=== PATIENT | male | born 1950 | race Caucasian/White ===

== ENCOUNTER 2016-06-02 18:34 | Emergency (ER) | payer BC ==
[2016-06-02] MEDS ORDERED: Sulfamethox/Trimethoprim DS 800/160* TAB PO ONE (20:09)
--- NOTE | 2016-06-02 20:09 | UC ---
Respiratory Complaint HPI - History of Current Complaint Chief Complaint: UCRespiratory Stated Complaint: COUGH/CONGESTION Time Seen by Provider: 06/02/16 19:59 Hx Obtained From: Patient Onset/Duration: Sudden Onset - 4 days ago, Worse Since - onset Timing: Constant Severity Initially: Mild Severity Currently: Moderate Character: Cough: Productive Associated Signs And Symptoms: Positive: Fever, Wheezing, URI, Nasal Congestion , Sinus Discomfort Related History: Seasonal Allergies - Risk Factors Pulmonary Embolism Risk Factors: Negative Cardiac Risk Factors: Smoking Pseudomonas Risk Factors: Negative Tuberculosis Risk Factors: Negative - Allergies/Home Medications Allergies/Adverse Reactions: Allergies Allergy/AdvReac Type Severity Reaction Status Date / Time No Known Allergies Allergy Verified 06/02/16 19:51 Home Medications: Home Medications Tamsulosin CAP* [Flomax CAP*] 0.4 mg PO DAILY 06/02/16 [History Confirmed ] PMH/Surg Hx/FS Hx/Imm Hx Endocrine History Of: Denies: Diabetes, Thyroid Disease Cardiovascular History Of: Denies: Cardiac Disorders, Hypertension Respiratory History Of: Denies: COPD, Asthma GI/ History Of: Denies: Ulcer - Surgical History Surgical History: Yes Surgery Procedure, Year, and Place: [facility] - Family History Known Family History: Positive: Cardiac Disease, Hypertension, Diabetes - Social History Occupation: Retired Lives: With Family Alcohol Use: None Substance Use Type: None Smoking Status (MU): Heavy Every Day Tobacco Smoker Amount Used/How Often: 1 ppd Length of Time of Smoking/Using Tobacco: started age 12 Review of Systems Constitutional: Fever, Chills ENT: Sore Throat, Nasal Discharge Respiratory: Shortness Of Breath, Cough Cardiovascular: Chest Pain - with coughing. Neurological: Headache - frontal sinus headache All Other Systems Reviewed And Are Negative: Yes Physical Exam Triage Information Reviewed: Yes Appearance: No Pain Distress, Well-Nourished, Ill-Appearing Vital Signs: Initial Vital Signs Temp 100.4 F 06/02/16 19:44 Pulse 68 06/02/16 19:44 Resp 14 06/02/16 19:44 BP 172/104 06/02/16 19:44 Pulse Ox 98 06/02/16 19:44 Vital Signs Reviewed: Yes Eyes: Positive: Conjunctiva Inflamed - ou mild ENT: Positive: Nasal congestion, TMs normal Neck exam: Normal Respiratory: Positive: Wheezing - diffuse moderate expiratory wheezes. Cardiovascular Exam: Normal Musculoskeletal Exam: Normal Neurological Exam: Normal Psychological Exam: Normal Skin Exam: Normal UC Diagnostic Evaluation - Laboratory O2 Sat by Pulse Oximetry: 98 Respiratory Course/Dx - Differential Dx/Diagnosis Differential Diagnosis/HQI/PQRI: Asthma, Lower Resp Infection, Sinusitis Provider Diagnoses: Acute URI. Acute sinusitis. Acute bronchospasm Discharge - Discharge Plan Condition: Stable Disposition: HOME Prescriptions: Sulfamethox/Trimethoprim DS* [Bactrim DS 800/160 TAB*] 1 tab PO BID #20 tab predniSONE TAB* [Deltasone TAB*] 20 mg PO DAILY #18 tab Patient Education Materials: Upper Respiratory Infection (ED), Sinusitis (ED), Sulfamethoxazole/Trimethoprim (By mouth), Bronchospasm (ED), Prednisone (By mouth), How to Use a Metered-Dose Inhaler and a Spacer (ED) Referrals: Clarissa Gómez MD [Primary Care Provider] - 5 Days (on your blood pressure) Additional Instructions: Smoking Cessation Tricks. 1. Cut down by 1 cigarette per day every 2-3 days. Write the number of smokes for that day on the calendar. 2. Identify triggers to smoking: after meals, on the phone, in the car, with coffee, on breaks at work, etc. 3. Formulate a plan with a behavior to replace the smoking. Fireballs in the car , doodle pad on the phone, flavored creamer for the coffee, go for a walk after a meal or on break at work. 4. For stress smokes do deep breathing relaxation. Breath deep in through the nose hold the breath in for a few seconds then breath out slowly through the mouth. Local [employer] SINUS RINSE: CHECK OUT AT [facility] Saline nasal wash helps with mucous, allergies and congestion. It can be used up to twice a day or only as needed. Use lukewarm tap water. It does not have to be sterilized or distilled water. Do 1/3 on each side and snort out of both nostrils. Repeat the process with 1/6 of the bottle on each side with snorting in between to finish the solution in the bottle NASAL SPRAYS AND DROPS: Afrin in the PUMP/ MIST bottle. Tilt your head down and look at the floor while doing a strong sniff with the spray. Decongestant nasal sprays and drops often give dramatic relief from congestion. They are often recommended for patients with sinus infection to assist with sinus drainage. Persons with high blood pressure should consult the doctor before using these nasal sprays. Afrin and Gulshan-Synephrine are common [id number] preparations. They should not be used for more than five days, as "rebound" congestion can occur - - the congestion flares as the drug wears off. A way of dealing with this rebound congestion problem is to medicate only one nostril each time, allowing the other nostril to recover from the medicine' s effects. When you no longer need the drug during the day, spray only one nostril each night. This helps you sleep well without severe rebound congestion. Call the doctor if you develop severe headache, palpitations, or chest pain.
[2016-06-02] MEDS ORDERED: Albuterol HFA INHALER* 8 gm MDI INH ONE (20:10)
== END 2016-06-02 20:31 | disposition home or self-care (01) ==
LOC: UCCORT 18:34
DX: J06.9 Acute upper respiratory infection, unspecified (principal); J98.01 Acute bronchospasm; F17.210 Nicotine dependence, cigarettes, uncomplicated
CPT/HCPCS: 99203; A9270-GY; G0463

== ENCOUNTER 2016-12-14 09:48 | Emergency (ER) | payer MEDICARE, BC ==
[2016-12-14 10:25] VITALS: BP 150/100
--- NOTE | 2016-12-14 10:52 | RAD ---
HISTORY: Right middle finger trauma COMPARISONS: None VIEWS: 3, Frontal, lateral, and oblique views of the third digit of the right hand FINDINGS: BONE DENSITY: Normal. BONES: There is no displaced fracture. JOINTS: There is mild osteoarthritis of interphalangeal joints. There is osteoarthritis of the MCP joints. ALIGNMENT: There is no dislocation. SOFT TISSUES: There is soft tissue irregularity consistent with history of laceration. OTHER FINDINGS: None. IMPRESSION: OSTEOARTHRITIS. NO ACUTE OSSEOUS INJURY. IF SYMPTOMS PERSIST, RECOMMEND REPEAT IMAGING.
[2016-12-14] MEDS ORDERED: Lidocaine 2% PF * 5 ML VIAL INJ ONE (10:58)
--- NOTE | 2016-12-14 11:39 | UC ---
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 CUT RIGHT SECOND FINGER WITH EMERSION SOURCING ANALYST - History Of Current Complaint Chief Complaint: UCLaceration Stated Complaint: RIGHT MIDDLE FINGER LAC Time Seen by Provider: 12/14/16 10:01 Hx Obtained From: Patient Laceration Location: Finger Mechanism Of Injury: Sharp Trauma Onset/Duration: Sudden Onset, Lasting Hours Related History: Dominant Hand Right - Allergies/Home Medications Allergies/Adverse Reactions: Allergies Allergy/AdvReac Type Severity Reaction Status Date / Time No Known Allergies Allergy Verified 12/14/16 10:18 PMH/Surg Hx/FS Hx/Imm Hx Previously Healthy: Yes - Surgical History Surgical History: Yes Surgery Procedure, Year, and Place: [facility] - Family History Known Family History: Positive: Cardiac Disease, Hypertension, Diabetes - Social History Occupation: Retired Lives: With Family Alcohol Use: None Substance Use Type: None Smoking Status (MU): Heavy Every Day Tobacco Smoker Amount Used/How Often: 1 ppd Length of Time of Smoking/Using Tobacco: started age 12 Cessation Counseling: Patient Advised to Stop - Immunization History Most Recent Tetanus Shot: WITHIN 5 YEARS Review of Systems Constitutional: Negative Skin: Other - laceration Right third finger Eyes: Negative ENT: Negative Respiratory: Negative Cardiovascular: Negative Gastrointestinal: Negative Genitourinary: Negative Motor: Negative Neurovascular: Negative Musculoskeletal: Negative Neurological: Negative Psychological: Negative Is Patient Immunocompromised?: No All Other Systems Reviewed And Are Negative: Yes Physical Exam Triage Information Reviewed: Yes Appearance: Well-Appearing, No Pain Distress, Well-Nourished Vital Signs: Initial Vital Signs Temp 98.1 F 12/14/16 10:18 Pulse 66 12/14/16 10:18 Resp 18 12/14/16 10:18 BP 150/100 12/14/16 10:18 Pulse Ox 97 12/14/16 10:18 Vital Signs Reviewed: Yes Eye Exam: Normal ENT Exam: Normal ENT: Positive: Normal ENT inspection, TMs normal Dental Exam: Normal Neck exam: Normal Neck: Positive: Supple, Nontender, No Lymphadenopathy Respiratory Exam: Normal Respiratory: Positive: Chest non-tender, Lungs clear, Normal breath sounds, No respiratory distress, No accessory muscle use Cardiovascular Exam: Normal Cardiovascular: Positive: RRR, No Murmur, Pulses Normal, Brisk Capillary Refill Abdominal Exam: Normal Musculoskeletal Exam: Normal Musculoskeletal: Positive: Strength Intact, ROM Intact Neurological Exam: Normal Psychological Exam: Normal Skin: Positive: Other - laceration right third finger Laceration Repair - Laceration Repair 1 Description: Linear Laceration Size After Repair: Length (cm) - 1.3, Width (mm) - 2, Depth (mm) - 4 Type Injection: Digital Anesthesia Used: 2.0% Lido Cleansing Completed Via Routine Prep: Yes Irrigation With Pressure Irrigation Device: Yes Closure Material: Sutures Closure Method: Single Layer Suture Of: Skin - 5 x 4-0 Suture Type: Prolene Laceration Course/Dx - Differential Dx - Laceration/Wound Differental Diagnoses: Laceration, Tendon Laceration Provider Diagnoses: LACERATION RIGHT THIRD FINGER WITH REPAIR Discharge - Discharge Plan Condition: Stable Disposition: HOME Patient Education Materials: Finger Laceration (ED) Referrals: Clarissa Gómez MD [Primary Care Provider] - Additional Instructions: HAVE SUTURES REMOVED IN TEN DAYS
== END 2016-12-14 11:42 | disposition home or self-care (01) ==
LOC: UCCORT 09:48
DX: S61.212A Laceration without foreign body of right middle finger without damage to nail, initial encounter (principal); W29.8XXA Contact with other powered hand tools and household machinery, initial encounter; Y93.G1 Activity, food preparation and clean up; Y92.9 Unspecified place or not applicable; F17.210 Nicotine dependence, cigarettes, uncomplicated
CPT/HCPCS: 12001; 73140; 99211; G0463

== ENCOUNTER 2016-12-23 07:52 | Emergency (ER) | payer MEDICARE, BC ==
--- NOTE | 2016-12-23 08:17 | UC ---
Ear Complaint HPI - HPI Summary HPI Summary: patient here to get sutures removed from a previous injury, and also complaining of pain and fluid in the left ear. - History of Current Complaint Chief Complaint: UCSkin Stated Complaint: SUTURE REMOVAL/LEFT EAR COMPLAINT Time Seen by Provider: 12/23/16 08:03 Hx Obtained From: Patient Onset/Duration: Sudden Onset, Lasting Days Severity Initially: Mild Severity Currently: Mild Associated Signs/Symptoms: Positive: URI Symptoms - Allergies/Home Medications Allergies/Adverse Reactions: Allergies Allergy/AdvReac Type Severity Reaction Status Date / Time No Known Allergies Allergy Verified 12/23/16 08:02 PMH/Surg Hx/FS Hx/Imm Hx Previously Healthy: Yes - Surgical History Surgical History: Yes Surgery Procedure, Year, and Place: [facility] - Family History Known Family History: Positive: Cardiac Disease, Hypertension, Diabetes - Social History Alcohol Use: None Substance Use Type: None Smoking Status (MU): Heavy Every Day Tobacco Smoker Amount Used/How Often: 1 ppd Length of Time of Smoking/Using Tobacco: started age 12 Household Exposure Type: Cigarettes - Immunization History Most Recent Tetanus Shot: WITHIN 5 YEARS Review of Systems Constitutional: Negative Skin: Other - resolved lac Eyes: Negative ENT: Ear Ache Respiratory: Negative Cardiovascular: Negative Gastrointestinal: Negative Genitourinary: Negative Motor: Negative Neurovascular: Negative Musculoskeletal: Negative Neurological: Negative Psychological: Negative Is Patient Immunocompromised?: No All Other Systems Reviewed And Are Negative: Yes Physical Exam Triage Information Reviewed: Yes Appearance: Well-Appearing, Well-Nourished, Pain Distress Vital Signs: Initial Vital Signs Temp 97.8 F 12/23/16 08:02 Pulse 59 12/23/16 08:02 Resp 16 12/23/16 08:02 BP 164/89 12/23/16 08:02 Pulse Ox 100 12/23/16 08:02 Vital Signs Reviewed: Yes Eye Exam: Normal ENT: Positive: Pharynx normal, TMs normal - small amount of serous fluid behind TM Dental Exam: Normal Neck exam: Normal Respiratory Exam: Normal Cardiovascular Exam: Normal Abdominal Exam: Normal Bowel Sounds: Positive: Present Musculoskeletal Exam: Normal Neurological Exam: Normal Psychological Exam: Normal Skin Exam: Normal Ear Complaint Course/Dx - Course Course Of Treatment: hx obtained, exam performed ,meds reviewed, sutures removed , lac is well healed, educated on treatment of serous otitis - Differential Dx/Diagnosis Differential Diagnosis/HQI/PQRI: Cerumen Impaction, Otitis Externa, Otitis Media , URI Provider Diagnoses: left serous otitis. suture removal Discharge - Discharge Plan Condition: Stable Disposition: HOME Patient Education Materials: Serous Otitis Media (ED) Referrals: Clarissa Gómez MD [Primary Care Provider] - Additional Instructions: 1. your wound looks good, continue with keeping it clean and dry, warm soaks daily will also help with healing. 2. You have some clear fluid behind your ears, warm compresses, gentle massage of the neck, and decongestants to help relieve the fluid.
[2016-12-23 08:18] VITALS: BP 164/89
== END 2016-12-23 08:20 | disposition home or self-care (01) ==
LOC: UCCORT 07:52
DX: Z48.02 Encounter for removal of sutures (principal); H65.92 Unspecified nonsuppurative otitis media, left ear; F17.210 Nicotine dependence, cigarettes, uncomplicated